=== PATIENT | female | born 1960 | race Caucasian/White ===

== ENCOUNTER 2022-03-01 00:56 | Emergency (ER) | payer OTHER, SELFPAY ==
[2022-03-01 01:03] VITALS: BP 163/76; PULSE 71; RESP 20; TEMP 36.6; O2SAT 97; BMI 26.6
[2022-03-01 02:03] LABS: Add Manual Diff / Slide Review NO; Basophils Absolute Auto 0 /uL (0-100); Basophils Percent Auto 0.8 % (0-2); Eosinophils Absolute Auto 100 /uL (0-450); Eosinophils Percent Auto 2.8 % (2-4); Hematocrit 37.4 % (36-46); Hemoglobin 12.5 g/dL (12.0-16.0); Lymphocytes Absolute Auto 700 /uL (1100-4500); Lymphocytes Percent Auto 17.9 % (25-40); Mean Corpuscular HGB Conc 33.4 % (30-36); Mean Corpuscular Hemoglobin 28.3 PG (26-34); Mean Corpuscular Volume 84.6 fL (80-100); Monocytes Absolute Auto 600 /uL (0-900); Monocytes Percent Auto 13.9 % (3-14); Neutrophils Absolute Auto 2600 /uL (1500-7000); Neutrophils Percent Auto 64.6 % (50-75); Platelet Count 224 X10^3/uL (150-400); Red Blood Cell Count 4.42 X10^6/uL (4.0-5.2); White Blood Cell Count 4.1 X10^3/uL (4.5-11.0)
--- NOTE | 2022-03-01 02:03 | PC.NURSE ---
States that she hasn't felt well all day then this afternoon developed left sided flank pain - that radiates around to the left lower abdominal area - states that she has a history of a kidney stone that was on the right side several years ago - states that she had to have lithotripsy to break up that stone - relates that she does not have UTI s/sx - normally has frequency and bilateral pressure - denying those s/sx at this time - unable to get comfortable - moving around but states that it does not help - states that she took half of a vicodin earlier today and that it helped but has worn off - now with nausea without vomiting
[2022-03-01 02:14] LABS: Alanine Aminotransferase 21 IU/L (<35); Albumin Globulin Ratio 1.3 (1.0-2.8); Alkaline Phosphatase 73 U/L (38-126); Aspartate Aminotransferase 25 IU/L (14-36); BUN Creatinine Ratio 13.3 (6-22); Bilirubin Total 0.3 mg/dL (0.2-1.3); Blood Urea Nitrogen 17 mg/dL (7-17); Calcium 9.3 mg/dL (8.4-10.2); Carbon Dioxide 27 mmol/L (22-32); Chloride 105 mmol/L (98-107); Estimated Glomerular Filt Rate 48 mL/min (>60); Globulin 3.2 g/dL (1.7-4.1); Glucose 106 mg/dL (80-110); HEMOLYSIS < 15 (0-50); Lipase 213 U/L (23-300); Potassium 4.2 mmol/L (3.4-5.1); Sodium 138 mmol/L (137-145); Total Protein 7.2 g/dL (6.3-8.2)
--- NOTE | 2022-03-01 02:20 | ED_ITS ---
HPI - Female Genitourinary General Chief complaint: Urogenital-Female Stated complaint: POSSIBLE KIDNEY STONE OR BLADDER INFECTION Time Seen by Provider: 03/01/22 01:14 Source: patient Mode of arrival: Ambulatory History of Present Illness HPI Narrative: 61-year-old female nonsmoker with history of prior kidney stones presents with a chief complaint of a relatively sudden onset left flank pain that radiates into her left groin earlier this evening. She states that there is no obvious provocation or palliation and that it feels like prior kidney stones. Her last stone was in 2018 and she did require lithotripsy, this was not done locally. She denies dizziness, weakness or lightheadedness. She has some nausea but denies any vomiting. She is had no fever or chills. She denies any dysuria, frequency or urgency. Related Data Previous Rx's Medication Instructions Recorded hydrocodone 5 mg-acetaminophen 325 1 tab PO Q4-6H PRN pain #10 tabs 03/01/22 mg tablet ketorolac 10 mg tablet 10 mg PO Q6H PRN pain #14 tabs 03/01/22 ondansetron 4 mg disintegrating 4 mg PO TID-QID PRN nausea and 03/01/22 tablet vomiting #10 tabs tamsulosin 0.4 mg capsule (Flomax) 0.4 mg PO DAILY #30 caps 03/01/22 Allergies Allergy/AdvReac Type Severity Reaction Status Date / Time codeine AdvReac Verified 03/01/22 01:10 Review of Systems Review of Systems Narrative: GENERAL: Denies chills, fatigue, malaise, fever, sweats. HEENT: Denies sinus pain, ear pain, sore throat, difficulty swallowing, dizziness. RESPIRATORY: Denies dyspnea, cough, wheezing, hemoptysis, sputum. CARDIOVASCULAR: Denies chest pain, palpitations, orthopnea, edema, GASTROINTESTINAL: Denies nausea, vomiting, abdominal pain, diarrhea, constipation, melena. : See HPI MUSCULOSKELETAL: denies weakness, joint pain, or bony pain SKIN: Denies rash, skin lesions, or other NEUROLOGIC: Denies weakness, headache, numbness, change in speech, confusion, seizures, incoordination. PSYCHIATRIC: No concerning psychosocial issues. 12 point review of systems is negative except for those stated above Patient History Substance Use Type: does not use Exam Narrative Exam Narrative: GENERAL: [61] year old patient appears stated age. Well-developed patient, in mild distress. Pacing in the room, unable to find a position of comfort HEAD: Atraumatic. Normocephalic. EYES: Pupils equal round and reactive. Extraocular motions intact. No scleral icterus. No injection or drainage. ENT: Nose without bleeding, purulent drainage. Throat without erythema, tonsillar hypertrophy or exudate. Airway patent. NECK: Trachea midline. Non tender CARDIOVASCULAR: Regular rate and rhythm without murmurs, gallops, or rubs. RESPIRATORY: Clear to auscultation. Breath sounds equal bilaterally. No wheezes, rales, or rhonchi. GASTROINTESTINAL: Abdomen soft, non-tender, nondistended. EXTREMITIES: No edema or joint tenderness. BACK: Left CVA tenderness NEURO: AOx3. SKIN: No rash or erythema of visible areas Initial Vital Signs Initial Vital Signs: Vital Signs Temperature 98 F 03/01/22 01:03 Pulse Rate 71 03/01/22 01:03 Respiratory Rate 20 03/01/22 01:03 Blood Pressure 163/76 H 03/01/22 01:03 Pulse Oximetry 97 03/01/22 01:03 Oxygen Delivery Method 03/01/22 01:03 Course Orders Ordered: ED Orders 03/01/22 01:15 Urine Culture Stat Urine Microscopic Stat 03/01/22 01:45 Complete Blood Count AUTO DIFF Stat Comprehensive Metabolic Panel Stat Lipase Stat 03/01/22 02:21 CT kidney ureter bladder (KUB) Stat Discontinued Medications Hydrocodone Bitart/Acetaminophen (Hydrocodone/Acet 5/325 Prepack) 1 bottle MISC SEEINSTR ONE Stop: 03/01/22 03:41 Sodium Chloride (Normal Saline 0.9%) 1,000 mls @ 1,000 mls/hr IV BOLUS ONE Stop: 03/01/22 03:20 Last Admin: 03/01/22 02:36 Dose: 1,000 mls/hr Documented By: JESSICA Ketorolac Tromethamine (Ketorolac 30 Mg/Ml Vial) 15 mg IV NOW ONE Stop: 03/01/22 02:22 Last Admin: 03/01/22 02:36 Dose: 15 mg Documented By: JESSICA Ondansetron HCl (Ondansetron 4 Mg Odt Prepack) 1 bottle MISC SEEINSTR ONE Stop: 10/07/22 03:41 Vital Signs Vital signs: Vital Signs - 8 hr 03/01/22 01:03 Temperature 98 F Pulse Rate 71 Respiratory Rate 20 Blood Pressure 163/76 H Pulse Oximetry 97 Oxygen Delivery Method Room Air MDM - Female Genitourinary Lab Data Result diagrams: 03/01/22 01:45 03/01/22 01:45 Labs: Lab Results 03/01/22 03/01/22 03/01/22 Range/Units 01:15 01:45 01:45 WBC 4.1 L (4.5-11.0) X10^3/uL RBC 4.42 (4.0-5.2) X10^6/uL Hgb 12.5 (12.0-16.0) g/dL Hct 37.4 (36-46) % MCV 84.6 (80-100) fL MCH 28.3 (26-34) PG MCHC 33.4 (30-36) % RDW 14.0 (11.6-14.8) % Plt Count 224 (150-400) X10^3/uL Neut % (Auto) 64.6 (50-75) % Lymph % (Auto) 17.9 L (25-40) % [place] % (Auto) 13.9 (3-14) % Eos % (Auto) 2.8 (2-4) % Baso % (Auto) 0.8 (0-2) % Neut # (Auto) 2600 (7078-7972) /uL Lymph # (Auto) 700 L (4848-1988) /uL [place] # (Auto) 600 (0-900) /uL Eos # (Auto) 100 (0-450) /uL Baso # (Auto) 0 (0-100) /uL Sodium 138 (137-145) mmol/L Potassium 4.2 (3.4-5.1) mmol/L Chloride 105 (98-107) mmol/L Carbon Dioxide 27 (22-32) mmol/L BUN 17 (7-17) mg/dL Creatinine 1.28 H (0.52-1.04) mg/dL Estimated GFR 48 L (>60) mL/min BUN/Creatinine Ratio 13.3 (6-22) Glucose 106 (80-110) mg/dL Calcium 9.3 (8.4-10.2) mg/dL Total Bilirubin 0.3 (0.2-1.3) mg/dL AST 25 (14-36) IU/L ALT 21 (<35) IU/L Alkaline Phosphatase 73 (38-126) U/L Total Protein 7.2 (6.3-8.2) g/dL Albumin 4.0 (3.5-5.0) g/dL Globulin 3.2 (1.7-4.1) g/dL Albumin/Globulin Ratio 1.3 (1.0-2.8) Lipase 213 (23-300) U/L Urine RBC >100/hpf H (0-5/HPF) Urine WBC None seen (0-5/HPF) Ur Squamous Epith Cells None seen (0-5/HPF) Calcium Oxalate Crystal Few H Urine Bacteria Few (2-10) H (None) Ur Culture Indicated? Culture not indicate Micro UA Comment * Urine Dip Bedside Urine Glucose Negative Bedside Urine Bilirubin - Negative Bedside Urine Ketone - Negative Urine Specific [place] 1.025 Bedside Urine Occult Blood +++ Bedside Urine pH 6 Bedside Urine Protein ++ 100 Bedside Urine Urobilinogen - Negative Bedside Urine Nitrite - Negative Bedside Urine Leukocytes +/- [address] scan - abdomen/pelvis: My Impression: 5mm stone with mild hydro MDM Narrative Medical decision making narrative: Patient with reassuring history and physical exam, reminiscent of prior kidney stones. She shows no signs of infection such as fever chills, has no sign of infection in urine. Pain is well controlled, she is tolerating orals. Patient given return precautions and questions answered to her apparent satisfaction Discharge Plan Departure Patient Disposition: Home Clinical Impression: Kidney calculi Instructions: DI for Kidney Stones Activity Restrictions/Additional Instructions: *You have been diagnosed with [left sided kidney stone measuring 5mm ] *What to do: *Please continue to take your regular medications as directed. [x ] New medication prescriptions sent to your pharmacy: [[facility] ] [ ] New medication written as a paper prescription [ ] No new medications given *Please follow up with your primary care provider in 2-3 days, call for an appointment. Let them know you were seen in the Emergency Department and that we ask that you be seen in follow up. We will electronically transmit a record of today's note if your PCP is in our system *As we discussed I have included contact info for the local urology group, jonny herring call them later today for a follow up, let them know you were seen in the emergency department and we would like you seen in follow-up *Return to Emergency Department if you should have any new, worsening or concerning symptoms, such as [fever greater than 101 F, shaking chills, worsening pain, persistent vomiting or other bothersome symptoms] You have been prescribed a short course of narcotic medications. These are potentially dangerous and addictive medications that should be used carefully. While on these medications you cannot drive or operate heavy machinery. Additionally, you cannot sign legal documents or perform any duties such as this. 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 Please understand that we cannot provide further refills of narcotics or con trolled substances through the ED and your pain management will need to be through your Primary Care Provider Prescriptions: New hydrocodone-acetaminophen 5-325 mg tablet 1 tab PO Q4-6H PRN (Reason: pain) Qty: 10 0RF ketorolac 10 mg tablet 10 mg PO Q6H PRN (Reason: pain) Qty: 14 0RF tamsulosin [Flomax] 0.4 mg capsule 0.4 mg PO DAILY Qty: 30 0RF ondansetron 4 mg tablet,disintegrating 4 mg PO TID-QID PRN (Reason: nausea and vomiting) Qty: 10 0RF
--- NOTE | 2022-03-01 02:20 | PC.NURSE ---
To CT ambulatory with steady gait
--- NOTE | 2022-03-01 02:21 | DI.CT.S_ITS ---
PROCEDURE: CT KIDNEY URETER BLADDER (KUB) INDICATIONS: flank pain, history of stones, increased creatinine TECHNIQUE: Axial sections were acquired from the lung bases to the pubic symphysis. Coronal and sagittal reformats were performed. For radiation dose reduction, the following was used: automated exposure control, adjustment of mA and/or kV according to patient size. COMPARISON: [facility], CT, CT CHEST WITHOUT CONTRAST, 09/04/2021, 10:31. FINDINGS: Image quality: Excellent Lower chest: Partially visualized lower lung nodules, scarring, and atelectasis. These are better delineated on prior CT chest and are generally stable. Stable lower periesophageal borderline enlarged lymph node. Solid organs: The liver is unremarkable. Gallbladder is absent. The biliary tree is prominent post cholecystectomy. Pancreas and spleen are unremarkable. No adrenal nodules. Right kidney is within normal limits. There are a few small tiny nonobstructing calculi in the left kidney. There is mild left hydronephrosis. In the left proximal ureter, there is a 6 x 4 x 4 mm obstructing calculus. Vessels and lymph nodes: No abdominal aortic aneurysm. Prominent, non-specific lymph nodes are present that are not enlarged by size criteria. These are particularly seen in the partially visualized lower chest. Bowel and peritoneum: No bowel obstruction. The distal esophagus is patulous, nonspecific. No pathologic ascites. Body wall: Fat containing periumbilical hernia. Pelvis: Bladder is under distended, limiting evaluation. Hysterectomy. Bones: No acute or overtly suspicious osseous lesion. L5 on S1 anterolisthesis and pars defects. IMPRESSION: Mild left hydronephrosis secondary to an obstructing 6 x 4 mm left proximal ureter calcified stone. Other stable/incidental findings described above. Chest findings are better delineated on prior CT from August, generally stable. This is only partially visualized. Agree with preliminary report. Dictated by: Parviz Gilliam M.D. on 03/01/2022 at 8:13 Approved by: Parviz Gilliam M.D. on 03/01/2022 at 8:21
[2022-03-01 02:23] LABS: Bacteria Urine Few (2-10); Calcium Oxalate Crystals Urine Few; RBC Urine >100/HPF (0-5/HPF); Squamous Epithelial Cell Urine None Seen (0-5/HPF); WBC Urine None Seen (0-5/HPF)
--- NOTE | 2022-03-01 02:35 | PC.NURSE ---
Returns to the room from radiology - ambulatory with steady gait
[2022-03-01] MEDS: SODIUM CHLORIDE 0.9% 1,000 ML 1000 ML IV (02:36)
[2022-03-01] MEDS: KETOROLAC 30 MG/ML VIAL 15 MG IV (02:36)
[2022-03-01] MEDS: ONDANSETRON 4 MG ODT PREPACK 1 BOTTLE MISC (03:55)
[2022-03-01] MEDS: HYDROCODONE/ACET 5/325 PREPACK 1 BOTTLE MISC (03:55)
== END 2022-03-01 04:20 | disposition home or self-care (01) ==
PROVIDERS: Emergency Provider Emergency Medicine
DX: N20.0 Calculus of kidney (principal)
CPT/HCPCS: 36415; 74176; 80053; 81003; 81015; 83690; 85025; 87086; 96374; 99284; J1885

== ENCOUNTER → 2022-07-04 10:09 | Outpatient (CLI) | payer OTHER, SELFPAY ==
--- NOTE | 2022-07-04 10:16 | DI.ECHO.S_ITS ---
[place] [facility]---------+ [facility] +---------+ : : [id number] : : : : [id number] : : : : Phone: [phone]+ Echocardiogram Report + + :Name: XIOMARA ROSE Study Date: 07/04/2022 Height: 66 in : :[facility] ReadingLocation: Weight: 165 lb : : Gender: Female BSA: 1.8 m2 : :: 1960 Age: 61 yrs BP: 132/78 mmHg: :Reason For Study: Pericardial effusion : :Ordering Physician: Agustin : :Trinidad Nguyen Performed By: Edel Yang : :Referring: AGUSTIN NGUYEN : + + Interpretation Summary Limited Echo: There is a trace pericardial effusion that is circumferential. There has been no significant change since the previous study. Procedure: A two-dimensional transthoracic echocardiogram with color flow and Doppler was performed in limited views only to assess pericardial effusion. The study quality was technically adequate. The patient was in sinus rhythm with heart rates between 69-76 bpm during the exam. Left Ventricle: The left ventricle is normal in size and wall thickness. The ejection fraction is estimated to be 60-65%. Tricuspid Valve: The right ventricular systolic pressure is estimated to be at least 39.4 mmHg based on an estimated right atrial pressure of 15 mm Hg. Great Vessels: The IVC is dilated (diameter is greater than 2.1 cm) and it collapses less than 50% with a sniff. This suggests a high right atrial pressure of 15 mm Hg. Pericardium/ Pleura There is a trace pericardial effusion that is circumferential. There has been no significant change since the previous study. There are no echocardiographic indications of cardiac tamponade. MMode/2D Measurements & Calculations LVIDd: 4.9 cm IVC diam: 2.4 cm LVIDs: 3.2 cm FS: 34.7 % IVSd: 0.70 cm LVPWd: 0.50 cm LV jones. diameter/BSA (cm/m^2): 2.7 LV sys. diameter/BSA (cm/m^2): 1.7 Doppler Measurements & Calculations TR max jose: 247.0 cm/sec TR max P.4 mmHg Reading Physician:07:14 PM
== END ==
LOC: ECHO 10:14
PROVIDERS: Referring Provider Internal Medicine Cardiovascular Disease; Visit Provider Internal Medicine Cardiovascular Disease
DX: I31.39 Other pericardial effusion (noninflammatory) (principal)
CPT/HCPCS: 93307

== ENCOUNTER → 2023-10-22 18:35 | Outpatient (CLI) | payer OTHER, SELFPAY ==
--- NOTE | 2023-10-22 18:38 | DI.RAD.S_ITS ---
PROCEDURE: XR CHEST 2V INDICATIONS: Cough TECHNIQUE: 2 views of the chest were acquired. COMPARISON: [facility], CT, CT CHEST WITHOUT CONTRAST, 09/04/2021, 10:31. FINDINGS: Surgical changes and devices: None. Lungs and pleura: Minimal appearance of interstitial prominence particularly within the bases. Mediastinum: Mediastinal contours are normal. Heart size is normal. Bones and chest wall: No suspicious bony abnormalities. Soft tissues appear unremarkable. IMPRESSION: Minimal bibasilar interstitial prominence. This can be related to developing infection/inflammation such as pneumonia. Dictated by: Jordana Good M.D. on 10/23/2023 at 20:06 Approved by: Jordana Good M.D. on 10/23/2023 at 20:07
== END ==
PROVIDERS: Referring Provider Nurse Practitioner Family; Visit Provider Nurse Practitioner Family
DX: R05.9 Cough, unspecified (principal)
CPT/HCPCS: 71046